=== PATIENT | male | born 1975 | race Caucasian/White ===

== ENCOUNTER 2017-04-03 18:24 | Emergency (ER) | payer SELFPAY ==
[~2017-04-03] VITALS: Ht 180.3 cm; Wt 84.1 kg
[~2017-04-03 18:24] MED LIST: BACTRIM DS 8001 TAB PO; NO HOME MEDICATIONS; NORCO 325 MG-51 TAB PO
[2017-04-03 18:27] VITALS: BP 140/86; PULSE 88; TEMP 98.8
== END 2017-04-03 19:40 | disposition home or self-care (01) ==
LOC: COL.ER 18:24
DX: L72.3 Sebaceous cyst (principal)

== ENCOUNTER → 2018-10-12 | Outpatient (CLI) | payer SELFPAY | LOC: ZCOL.LAB 16:22 | DX: L02.214 Cutaneous abscess of groin (principal) ==

== ENCOUNTER 2019-06-20 09:29 | Emergency (ER) | payer SELFPAY ==
[~2019-06-20] VITALS: Ht 177.8 cm; Wt 81.8 kg
[2019-06-20] MEDS ORDERED: TAMIFLU 75MG75 MG PO (10:39)
[2019-06-20 11:01] VITALS: BP 105/65; PULSE 78; TEMP 98.9
== END 2019-06-20 11:02 | disposition home or self-care (01) ==
LOC: COL.ER 09:29
DX: J10.1 Influenza due to other identified influenza virus with other respiratory manifestations (principal); F17.210 Nicotine dependence, cigarettes, uncomplicated; Z79.82 Long term (current) use of aspirin

== ENCOUNTER 2020-02-14 18:36 | Emergency (ER) | payer SELFPAY ==
[~2020-02-14] VITALS: Ht 177.8 cm; Wt 75.0 kg
[~2020-02-14 18:36] MED LIST changes: +TAMIFLU 75MG75 MG PO
[2020-02-14] MEDS ORDERED: ANUSOL HC CREAM30 GM TP (19:27)
[2020-02-14 19:39] VITALS: BP 124/76; PULSE 80; TEMP 98
== END 2020-02-14 19:37 | disposition home or self-care (01) ==
LOC: COL.ER 18:36
DX: K64.4 Residual hemorrhoidal skin tags (principal); L72.0 Epidermal cyst

== ENCOUNTER 2020-05-01 10:37 | Day surgery (SDC) | payer SELFPAY ==
[~2020-05-01] VITALS: Ht 180.3 cm; Wt 82.6 kg
[~2020-05-01 10:37] MED LIST changes: +ANUSOL HC CREAM30 GM TP
[2020-05-01 11:21] VITALS: BP 125/84; PULSE 64; TEMP 97.6
[2020-05-01] MEDS ORDERED: ADVIL200 MG PO (11:33)
--- NOTE | 2020-05-01 11:35 | NUR ---
TO RM AT 1052- CALL LIGHT IN REACH
[2020-05-01 15:10] VITALS: BP 119/83; PULSE 60; TEMP 97.3
--- NOTE | 2020-05-01 15:10 | NUR ---
TO RM 7 PER CART FROM PACU. ALERT ORIENTED X3, TALKING WITH STAFF. DENIES PAIN OR DISCOMFORT. DENIES NAUSEA OR VOMITING. DRESSING OVER SCROTUM WITH MESH PANTS. RECEIVED WATER.
[2020-05-01] MEDS ORDERED: NORCO 325 MG-51 TAB PO (15:24)
[2020-05-01 15:25] VITALS: BP 117/82; PULSE 62
[2020-05-01] MEDS ORDERED: QUALITY CHOI500 U/GM TOP (15:25)
--- NOTE | 2020-05-01 15:25 | NUR ---
TOLERATED WATER. RECEIVED APPLE SAUCE.
[2020-05-01 15:40] VITALS: BP 123/78; PULSE 58
--- NOTE | 2020-05-01 15:40 | NUR ---
ATE 100% AND TOLERATED WELL.
--- NOTE | 2020-05-01 16:00 | NUR ---
AMBULATED TO BATHROOM. VOIDED AND AMBULATED BACK TO BED.
--- NOTE | 2020-05-01 16:15 | NUR ---
RECEIVED DISCHARGE INSTRUCTIONS AND VERBALIZED UNDERSTANDING. DISCONTINUED IV AND INT-CATHETER INTACT. PATIENT GETTING DRESSED.
--- NOTE | 2020-05-01 16:30 | NUR ---
AMBULATED BACK TO BATHROOM ON HIS OWN AND TOLERATED WELL.
--- NOTE | 2020-05-01 16:40 | NUR ---
MOTHER CALLED AND UPDATED
--- NOTE | 2020-05-01 17:01 | NUR ---
DR CURIEL STATED HE TALKED TO HIS MOTHER AND WILL CALL PATIENT FOR A FOLLOW UP.
--- NOTE | 2020-05-01 17:02 | NUR ---
DISCHARGED PER WC BY STAFF TO PRIVATE CAR IN CARE OF HIS MOTHER.
== END 2020-05-01 17:02 | disposition home or self-care (01) ==
LOC: SDCO 10:37
DX: L72.3 Sebaceous cyst (principal); F17.210 Nicotine dependence, cigarettes, uncomplicated
CPT/HCPCS: J0690; J1100; J2405; J2704; J3010; J7120